=== PATIENT | female | born 1960 | race Caucasian/White ===

== ENCOUNTER → 2024-04-29 13:00 | Outpatient (REF) | payer BC, SELFPAY | LOC: HWWDC 13:00 | PROVIDERS: ATTENDING PHYSICIAN Obstetrics & Gynecology; FAMILY PHYSICIAN Internal Medicine | DX: Z12.31 Encounter for screening mammogram for malignant neoplasm of breast (principal) | CPT/HCPCS: 77063; 77067 ==

== ENCOUNTER 2024-08-18 16:51 | Emergency (ER) | payer BC, SELFPAY ==
[2024-08-18 16:55] VITALS: BP 145/81
[2024-08-18 17:18] LABS: % Basophils 0.7 % (0-2); % Eosinophils 3.6 % (0-6); % Immature Granulocytes 0.3 % (0-0.5); % Lymphocytes 38.6 % (20.5-51.1); % Monocytes 12.9 % (1.7-9.3); % Neutrophils 43.9 % (42.2-75.2); Absolute Basophils 0.1 10^3/uL (0-0.2); Absolute Eosinophils 0.3 10^3/uL (0-0.7); Absolute Lymphocytes 2.7 10^3/uL (1.2-3.4); Absolute Monocytes 0.9 10^3/uL (0.1-0.6); Absolute Neutrophils 3.1 10^3/uL (1.4-6.5); Hematocrit 44.7 % (37.0-47.0); Hemoglobin 14.9 g/dL (12.0-16.0); Mean Corp Hgb Conc. 33.3 g/dL (33.0-37.0); Mean Corpuscular Hgb 29.6 pg (27.0-31.0); Mean Corpuscular Volume 88.7 fL (81.0-99.0); Mean Platelet Volume 10.2 fL (7.4-10.4); Nucleated Red Blood Cells % 0 %; Platelet Count 243 10^3/uL (130-400); Red Blood Cell Count 5.04 10^6/uL (4.20-5.40); Red Cell Dist. Width 13.7 % (11.5-14.5)
[2024-08-18 17:31] LABS: Urine Albumin 1+ (Neg - Trace); Urine Bilirubin Negative (Negative); Urine Character Slightly Cloudy (Clear); Urine Color Yellow; Urine Glucose Negative (Negative); Urine Ketone Negative (Negative); Urine Leukocyte Negative (Negative); Urine Nitrite Negative (Negative); Urine Occult Blood 1+ (Negative); Urine Specific Gravity 1.025 (<1.030); Urine Urobilinogen Negative (Neg - 1+)
[2024-08-18 17:32] LABS: ALT (SGPT) 69 U/L (0-35); AST (SGOT) 66 U/L (14-36); Alkaline Phosphatase 64 U/L (38-126); Blood Urea Nitrogen 12 mg/dl (7-17); Calcium 9.6 mg/dl (8.4-10.2); Carbon Dioxide 30 mmol/L (22-30); Chloride 104 mmol/L (98-107); Glucose 94 mg/dl (70-99); Lipase 104 U/L (23-300); Potassium 3.5 mmol/L (3.5-5.1); Sodium 143 mmol/L (135-145); Total Bilirubin 0.9 mg/dl (0.2-1.3); Total Protein 8.9 g/dl (6.3-8.2); eGFR > 60.00
[2024-08-18 17:45] LABS: Urine Red Blood Cell 0-2 /HPF (0-2); Urine Squamous Cell >30 /LPF (Few); Urine White Cell 0-2 /HPF (0-5)
[2024-08-18 17:46] LABS: Urine Bacteria Few (Negative)
--- NOTE | 2024-08-18 18:02 | ED.GENMED ---
History of Present Illness
<Malaika Cohen PA-C - Last Filed: 08/18/24 23:31>
General
Chief Complaint: Flank Pain
Source: patient
Exam Limitations: none
Time Seen by Provider: 08/18/24 17:21
Nursing documentation reviewed up to this point in time: agreed with
History of Present Illness
History of Present Illness:
Patient is a 64-year-old female with history atrial fibrillation, hypertension, hyperlipidemia, Crohn's disease, kidney stones who presents to the emergency department with left flank pain X 3 days. Patient reports a constant pain in her left flank
with some radiation around to her left mid abdomen. She states pain is not coming in waves although seems worse with certain positions. Patient denies any associated nausea, vomiting, fevers. No diarrhea or constipation. No dysuria or gross
hematuria. She denies any chest pain or shortness of breath.
Patient has a history of kidney stones and states this pain does somewhat feel similar to that.
She has been taking Tylenol at home with little improvement.
No known inciting trauma or injury.
Past History
<Malaika Cohen PA-C - Last Filed: 08/18/24 23:31>
Past History
ED Past Medical History: HTN, Hypercholesterolemia and Other (Crohn's disease, kidney stones)
ED Past Surgical History: Appendectomy, Bowel resection, Cholecystectomy, and Gynecological
Social History
Tobacco: Non-smoker
Alcohol: None
Drug: None
Personal:
Living: with family
Employment: Other (Noncontributory)
Family History
Family History: Other (Noncontributory)
Review of Systems
<Malaika Cohen PA-C - Last Filed: 08/18/24 23:31>
Review of Systems
Allergies reviewed?: Yes
All Other Systems: ROS reviewed and negative except as documented in HPI and ROS
Phy Exam
<Malaika Cohen PA-C - Last Filed: 08/18/24 23:31>
Physical Exam
Physical Exam:
Vitals: Hypertensive on arrival, improved by myself
General: Patient is laying on her right side appears uncomfortable due to pain
Skin: Warm and dry, no rashes or lesions
Head: Normocephalic, atraumatic
Eyes: Sclera nonicteric.
Throat: Protecting airway
Neck: Normal ROM, no cervical spine tenderness, no meningismus
Cardiac: Regular rate and rhythm, no murmurs.
Pulm: Normal respiratory effort, no wheezes, rales, rhonchi heard on exam
.
Abdomen: Abdomen soft. Reproducible tenderness to left flank and left mid abdomen. No rebound tenderness or guarding. No rash or ecchymosis.
Extremities: No evidence of cyanosis or edema. Negative Homans' sign bilaterally. Palpable DP pulses bilaterally
Neuro: AAOx3. Grossly intact.
Psychiatric: Normal affect.
Course
<Malaika Cohen PA-C - Last Filed: 08/18/24 23:31>
Orders/Labs/Results
Orders:
Orders
08/18/24 17:06
Complete Blood Count/With Diff Urgent
Comprehensive Metabolic Panel Urgent
Lipase Urgent
Urinalysis Reflex To Culture Urgent
Date Specimen was Collected: 08/18/24
Time Specimen was Collected: 16:57
Urine Microscopic Reflex Cult Urgent
08/18/24 17:51
Abdomen/Pelvis wo Contrast CT [CT Abd/pelvis Wo Iv Cont] Urgent
Comment:
Reason For Exam: Left flank pain
0.9% Sodium Chloride 1000 ml [Nss] 1,000 ml IV BOLUS
HYDROmorphone [Dilaudid] 0.5 mg IV NOW STA
Ondansetron Injectable [Zofran] 4 mg IV NOW STA
08/18/24 19:29
Acetaminophen [Tylenol] 650 mg PO NOW STA
08/18/24 20:06
CT Abd/pelvis W Iv Cont Urgent
Comment:
Reason For Exam: Left flank pain
08/18/24 21:10
HYDROmorphone [Dilaudid] 0.5 mg IV NOW STA
08/18/24 21:39
Electrocardiogram (*1) Urgent
Reason for Study: Other
Other Reason for Exam: flank pain
EKG- Treatment ONCE
Abnormal Lab Results
08/18/24
17:06
Absolute Monos (auto) 0.9 H 10^3/uL
(0.1-0.6)
Monocytes % 12.9 H %
(1.7-9.3)
AST 66 H U/L
(14-36)
ALT 69 H U/L
(0-35)
Total Protein 8.9 H g/dl
(6.3-8.2)
Ur Occult Blood Reflex 1+ A
(Negative)
Urine Bacteria (Reflex) Few A
(Negative)
Urine Albumin (Reflex) 1+ A
(Neg - Trace)
08/18/24 17:06
08/18/24 17:06
Vital Signs
Initial and Last Documented VS:
Initial Vital Signs
Temp Pulse Resp BP Pulse Ox
98.2 F 76 18 145/81 96
08/18/24 16:55 08/18/24 16:55 08/18/24 16:55 08/18/24 16:55 08/18/24 16:55
Last Documented Vital Signs
Temp Pulse Resp BP Pulse Ox
98.2 F 76 18 117/75 96
08/18/24 16:55 08/18/24 16:55 08/18/24 16:55 08/18/24 21:28 08/18/24 21:30
<Chandana Carrera MD - Last Filed: 08/18/24 21:37>
Orders/Labs/Results
Orders:
Orders
08/18/24 17:06
Complete Blood Count/With Diff Urgent
Comprehensive Metabolic Panel Urgent
Lipase Urgent
Urinalysis Reflex To Culture Urgent
Date Specimen was Collected: 08/18/24
Time Specimen was Collected: 16:57
Urine Microscopic Reflex Cult Urgent
08/18/24 17:51
Abdomen/Pelvis wo Contrast CT [CT Abd/pelvis Wo Iv Cont] Urgent
Comment:
Reason For Exam: Left flank pain
0.9% Sodium Chloride 1000 ml [Nss] 1,000 ml IV BOLUS
HYDROmorphone [Dilaudid] 0.5 mg IV NOW STA
Ondansetron Injectable [Zofran] 4 mg IV NOW STA
08/18/24 19:29
Acetaminophen [Tylenol] 650 mg PO NOW STA
08/18/24 20:06
CT Abd/pelvis W Iv Cont Urgent
Comment:
Reason For Exam: Left flank pain
08/18/24 21:10
HYDROmorphone [Dilaudid] 0.5 mg IV NOW STA
08/18/24 21:39
Electrocardiogram (*1) Urgent
Reason for Study: Other
Other Reason for Exam: flank pain
EKG- Treatment ONCE
Abnormal Lab Results
08/18/24
17:06
Absolute Monos (auto) 0.9 H 10^3/uL
(0.1-0.6)
Monocytes % 12.9 H %
(1.7-9.3)
AST 66 H U/L
(14-36)
ALT 69 H U/L
(0-35)
Total Protein 8.9 H g/dl
(6.3-8.2)
Ur Occult Blood Reflex 1+ A
(Negative)
Urine Bacteria (Reflex) Few A
(Negative)
Urine Albumin (Reflex) 1+ A
(Neg - Trace)
08/18/24 17:06
08/18/24 17:06
Vital Signs
Initial and Last Documented VS:
Initial Vital Signs
Temp Pulse Resp BP Pulse Ox
98.2 F 76 18 145/81 96
08/18/24 16:55 08/18/24 16:55 08/18/24 16:55 08/18/24 16:55 08/18/24 16:55
Last Documented Vital Signs
Temp Pulse Resp BP Pulse Ox
98.2 F 76 18 117/75 96
08/18/24 16:55 08/18/24 16:55 08/18/24 16:55 08/18/24 21:28 08/18/24 21:30
<Johnnie Quintana PA-C - Last Filed: 08/18/24 22:30>
Orders/Labs/Results
Orders:
Orders
08/18/24 17:06
Complete Blood Count/With Diff Urgent
Comprehensive Metabolic Panel Urgent
Lipase Urgent
Urinalysis Reflex To Culture Urgent
Date Specimen was Collected: 08/18/24
Time Specimen was Collected: 16:57
Urine Microscopic Reflex Cult Urgent
08/18/24 17:51
Abdomen/Pelvis wo Contrast CT [CT Abd/pelvis Wo Iv Cont] Urgent
Comment:
Reason For Exam: Left flank pain
0.9% Sodium Chloride 1000 ml [Nss] 1,000 ml IV BOLUS
HYDROmorphone [Dilaudid] 0.5 mg IV NOW STA
Ondansetron Injectable [Zofran] 4 mg IV NOW STA
08/18/24 19:29
Acetaminophen [Tylenol] 650 mg PO NOW STA
08/18/24 20:06
CT Abd/pelvis W Iv Cont Urgent
Comment:
Reason For Exam: Left flank pain
08/18/24 21:10
HYDROmorphone [Dilaudid] 0.5 mg IV NOW STA
08/18/24 21:39
Electrocardiogram (*1) Urgent
Reason for Study: Other
Other Reason for Exam: flank pain
EKG- Treatment ONCE
Abnormal Lab Results
08/18/24
17:06
Absolute Monos (auto) 0.9 H 10^3/uL
(0.1-0.6)
Monocytes % 12.9 H %
(1.7-9.3)
AST 66 H U/L
(14-36)
ALT 69 H U/L
(0-35)
Total Protein 8.9 H g/dl
(6.3-8.2)
Ur Occult Blood Reflex 1+ A
(Negative)
Urine Bacteria (Reflex) Few A
(Negative)
Urine Albumin (Reflex) 1+ A
(Neg - Trace)
08/18/24 17:06
08/18/24 17:06
Vital Signs
Initial and Last Documented VS:
Initial Vital Signs
Temp Pulse Resp BP Pulse Ox
98.2 F 76 18 145/81 96
08/18/24 16:55 08/18/24 16:55 08/18/24 16:55 08/18/24 16:55 08/18/24 16:55
Last Documented Vital Signs
Temp Pulse Resp BP Pulse Ox
98.2 F 76 18 117/75 96
08/18/24 16:55 08/18/24 16:55 08/18/24 16:55 08/18/24 21:28 08/18/24 21:30
<Malaika Cohen PA-C - Last Filed: 08/18/24 23:31>
MDM/Problems Addressed
Differential Diagnosis Includes:
Not limited to: Renal colic, UTI, pyelonephritis, muscular strain, zoster, etc.
MDM/Problems Addressed:
64-year-old female with 3 days of constant left flank pain worse with movement. No associated fever, chills, dysuria, diarrhea, or shortness of breath. Patient does have history of kidney stones. Mildly hypertensive, otherwise vital signs stable
on arrival. Patient is afebrile. Physical exam as above. Differential broad. Possible renal colic versus infection such as cystitis/pyelonephritis. Lower suspicion for acute diverticulitis. No rash to suggest zoster will check basic labs,
urinalysis, and obtain noncontrast CT scan abdomen/pelvis. Will give IV fluids, Dilaudid and reassess
Update: Labs reviewed. No clinically significant abnormalities on CBC. Chemistry shows mild transaminitis which appears chronic and stable. Urine without signs of infection. Noncontrast CT abdomen/pelvis without acute findings. Patient remains
with significant discomfort in left flank�will proceed with CT scan with IV contrast to rule out any other acute abnormality including infarct, inflammatory process, etc.
Case signed out to Wilver Quintana PA-C pending CT report
Chronic conditions affecting care:
History of kidney stones
Acute Exacerbation and/or Progression of Chronic Illness:
N/A
<Malaika Cohen PA-C - Last Filed: 08/18/24 23:31>
*Radiology
Radiology exam reviewed: radiology read reviewed
*Pulse Oximetry
Patient hypoxic: no
*[employer] Interpretation
Rate: [employer]- N/A
*Critical Care Note
Total Time (30-74mins, 75-104mins- exclusive of procedures): Not Applicable
<Johnnie Quintana PA-C - Last Filed: 08/18/24 22:30>
Update Note
Update Note:
Procedure care of patient awaiting CT report. No clear cause of flank pain on CT. Subsequent EKG was obtained to rule out ACS which was reassuring. Discharged in stable condition
ED Attending Note
<Malaika Cohen PA-C - Last Filed: 08/18/24 23:31>
-
Portions of this chart may have been created with voice recognition software.� Occasional wrong word or��sound alike� substitutions may have occurred due to the inherent limitations of voice recognition software.
<Chandana Carrera MD - Last Filed: 08/18/24 21:37>
ED Attending Note
Patient seen and examined by attending physician: Yes
I performed the substantive portion of visit, reviewed & personally made and approve the management plan that is documented in note by myself or STERLING.: Yes
ED Attending Note:
64-year-old female with ongoing left flank pain for days. Feels like a kidney stone. Symptoms are left flank not right flank. No chest pain no shortness of breath. No rash. On exam patient is nontoxic and in no distress. There is no rash. She
points to the left flank. No respiratory distress. Regular rate and rhythm. Abdomen is soft and nontender.
Labs and CT reviewed. No clear explanation. We sent her back for a CT with IV contrast. Not describing PE symptoms. She has no shortness of breath no tachycardia no tachypnea no leg swelling. Highly doubt cardiac with 3 days of continual
symptoms. We will do an EKG to check for any changes prior to discharge however. Patient was offered admission for pain management but medically reasonable for outpatient management and follow-up
Discharge Plan
Departure
Patient Disposition: Home (Routine Discharge)
Date of Disposition: 08/18/24
Time of Disposition: 21:51
Patient with high blood pressure during this ER visit?: No
Discharge Problem:
Acute flank pain
Instructions: Flank Pain (DC)
Prescriptions:
New
methylprednisolone [Medrol (Bob)] 4 mg tablets,dose pack
See Rx Instructions .ROUTE .COMPLEX Qty: 21 0RF
Rx Instructions:
orally per package directions
oxycodone-acetaminophen [Percocet] 5-325 mg tablet
1 tab PO Q6HPRN PRN (Reason: pain) Qty: 10 0RF
No Action
lansoprazole [Prevacid] 30 MG capsule,delayed release(DR/EC)
30 mg PO . 5PM
multivitamin with folic acid [Tab-A-Memo] 1 TABLET tablet
1 tab PO DAILY
cranberry fruit 1,000 MG capsule
8,400 mg PO BID
cyanocobalamin (vitamin B-12) [Liquid B-12] 1,000 MCG/15 ML liquid
1,000 mcg PO DAILY
dicyclomine 20 MG tablet
20 mg PO QIDPRN PRN (Reason: abdominal pain)
acetaminophen 325 MG tablet
650 mg PO PRN PRN (Reason: Pain)
ascorbate calcium (vitamin C) 500 MG tablet
500 mg PO Q12
loratadine-pseudoephedrine 240 MG/10 MG tablet extended release 24 hr
1 tab PO QPM PRN (Reason: congestion)
potassium gluconate 99 MG tablet
3 tab PO HS
L.acidoph,paracasei,B.animalis 1 EACH capsule
1 cap PO DAILY
pyridoxine (vitamin B6) 50 MG tablet
50 mg PO DAILY
hydrochlorothiazide [Microzide] 12.5 MG capsule
12.5 mg PO DAILY
simethicone 125 MG tablet,chewable
125 mg PO PRN PRN (Reason: gas pains)
atenolol 50 MG tablet
50 mg PO DAILY Qty: 30 0RF
aspirin 81 MG tablet,delayed release (DR/EC)
81 mg PO DAILY
infliximab [Remicade] 100 MG/10 ML recon soln
400 mg IV .[id number]
methenamine hippurate [Hiprex] 1 GM tablet
1 g PO DAILY
fexofenadine [Ruth] 180 MG tablet
180 mg PO DAILY
loratadine 10 MG tablet
10 mg PO DAILY
Venofer 20 MG/ML solution
300 mg IV .[id number]
Referrals:
Isael,Danilo P., MD [Family Provider] -
Interventions
Interventions:
*Risk Screen - Suicide Last Done: 08/18/24 16:55
*General Assessment Last Done: 08/18/24 16:55
*Neglect/Abuse Screening Last Done: 08/18/24 16:55
*ED- Fall Risk Assessment Last Done: 08/18/24 18:13
*ED COVID-19 Vaccine History Last Done: 08/18/24 18:13
*Nursing Disposition Last Done: 08/18/24 22:01
LC-Bmzwty-Qabvznunpc Assessment Last Done: 08/18/24 18:13
ED-Female Genitourinary Assessment Last Done: 08/18/24 18:13
Discharge Date and Time
Discharge Date/Time: 08/18/24 22:00
Print Language: [id number]
[2024-08-18] MEDS: NSS 1000 IV (18:07)
[2024-08-18] MEDS: ZOFRAN 4 MG IV (18:07)
[2024-08-18] MEDS: DILAUDID 0.5 MG IV ×2 (18:08→21:25)
[2024-08-18 18:12] VITALS: BP 120/74; BMI 33.7
[2024-08-18] MEDS: TYLENOL 650 MG PO (19:54)
[2024-08-18 21:28] VITALS: BP 117/75
== END 2024-08-18 22:00 | disposition home or self-care (01) ==
LOC: EMR 16:51
PROVIDERS: Emergency Medicine; EMERGENCY PHYSICIAN Emergency Medicine; FAMILY PHYSICIAN Internal Medicine
DX: R10.9 Unspecified abdominal pain (principal); I48.91 Unspecified atrial fibrillation; I10 Essential (primary) hypertension; E78.00 Pure hypercholesterolemia, unspecified; K50.90 Crohn's disease, unspecified, without complications; Z87.442 Personal history of urinary calculi; Z79.82 Long term (current) use of aspirin; Z90.49 Acquired absence of other specified parts of digestive tract; Z98.0 Intestinal bypass and anastomosis status; Z88.1 Allergy status to other antibiotic agents; Z88.2 Allergy status to sulfonamides; Z88.8 Allergy status to other drugs, medicaments and biological substances; Z91.018 Allergy to other foods; Z91.048 Other nonmedicinal substance allergy status
CPT/HCPCS: 99284; 96375; 96361; 96374; 96376; 74176; 74177; 80053; 81003; 81015; 83690; 85025; 93005; Q9967